=== PATIENT | female | born 1960 | race Hispanic/Latino ===

== ENCOUNTER 2021-07-01 17:50 | Inpatient (IN) | payer SELFPAY ==
[2021-07-01] MEDS ORDERED: NA CHLORIDE 0.9% 2,000 ML ONE (20:53)
[2021-07-01] MEDS ORDERED: ACETAMINOPHEN 500 MG TAB ONE (20:53)
[2021-07-01] MEDS ORDERED: ONDANSETRON 4 MG/2 ML VIAL ONE (20:53)
[2021-07-01] MEDS ORDERED: ALBUTEROL INHALER 60 PUFF/8 GM IH ONE (20:54)
[2021-07-01 21:04] LABS: SARS-COV-2 RT PCR POSITIVE (NEGATIVE)
[2021-07-01 21:22] LABS: Absolute Lymphocytes (CBC) 0.4 K/uL (0.7-4.9); Basophils % 0.2 % (0-1.3); Hematocrit 41.4 % (36.0-45.0); Lymphocytes % 7.8 % (15.3-44.8); RBC Red Blood Cell Count 4.53 M/uL (3.86-4.86)
[2021-07-01 21:28] LABS: Protime INR 1.16
--- NOTE | 2021-07-01 22:00 | RAD REPORT ---
EXAM DESCRIPTION: RAD - Chest Single View - 07/01/2021 9:35 pm CLINICAL HISTORY: possible covid;Cough COMPARISON: None TECHNIQUE: AP portable chest image was obtained 07/01/2021 9:35 pm . FINDINGS: Patchy interstitial and alveolar opacities are present. No dense consolidation or mass. He art and vasculature are normal. No measurable pleural effusion and no pneumothorax. No acute bony abn ormality seen. No acute aortic findings suspected. IMPRESSION: Patchy lung parenchymal opacification present. Pattern is nonspecific but can be seen with mild COVID-19 pneumonia.
[2021-07-01 22:06] LABS: ALT/SGPT 27 U/L (12-78); AST/SGOT 27 U/L (15-37); Albumin 2.4 g/dL (3.4-5.0); Alkaline Phosphatase 108 U/L (45-117); Amylase 25 U/L (25-115); BUN Blood Urea Nitrogen 11 mg/dL (7-18); Bicarbonate 27 mmol/L (21-32); Bilirubin Direct 0.1 mg/dL (0-0.2); Bilirubin Total 0.4 mg/dL (0.2-1.0); Creatine Phosphokinase 19 U/L (26-192); Glucose Level 272 mg/dL (74-106); Lipase 96 U/L (73-393); Potassium 3.8 mmol/L (3.5-5.1); Protein, Total 7.5 g/dL (6.4-8.2); Sodium Level 136 mmol/L (136-145); Troponin (Emerg Dept Use Only) < 0.02 ng/mL (0.0-0.045)
[2021-07-01 22:07] LABS: CKMB Creatine Kinase MB < 1.0 ng/mL (1.0-3.6)
--- NOTE | 2021-07-01 22:42 | EDPHYS ---
Physician Documentation [facility] Name: Kay Carcamo Age: 60 yrs Sex: Female : 1960 Arrival Date: 07/01/2021 Time: 17:54 Bed 15 Private MD: ED Physician Evangelist George HPI: 07/01 19:40 This 60 yrs old Female presents to ER via Wheelchair with complaints of mh7 Breathing Difficulty, Fever, Vomiting. 19:40 The patient or guardian reports cough, that is intermittent, described as moderate, mh7 with no sputum, flu symptoms, low-grade fever, myalgias, no appetite. Onset: The symptoms/episode began/occurred 1 week(s) ago. Severity of symptoms: At their worst the symptoms were moderate, last night, in the emergency department the symptoms are unchanged. Modifying factors: The symptoms are alleviated by nothing, the symptoms are aggravated by nothing. Associated signs and symptoms: Pertinent positives: fever, nausea, vomiting, Shortness of breath, nasal congestion, Pertinent negatives: chest pain, diarrhea, ear ache, rhinorrhea, sore throat. Patient reports having symptoms for 1 week. She states that she went to a clinic and had a Covid test done 5 days ago but was unable to get the results.. Historical: - Allergies: 18:39 No Known Allergies; ss - Immunization history:: Client reports having NOT received the Covid vaccine. - Social history:: Smoking status: Patient denies any tobacco usage or history of. ROS: 19:40 Eyes: Negative for injury, pain, redness, and discharge, Neck: Negative for injury, mh7 pain, and swelling, Cardiovascular: Negative for chest pain, palpitations, and edema, Back: Negative for injury and pain, : Negative for injury, bleeding, discharge, and swelling, MS/Extremity: Negative for injury and deformity, Skin: Negative for injury, rash, and discoloration, Neuro: Negative for headache, weakness, numbness, tingling, and seizure, Psych: Negative for depression, anxiety, suicide ideation, homicidal ideation, and hallucinations, Allergy/Immunology: Negative for hives, rash, and allergies, Endocrine: Negative for neck swelling, polydipsia, polyuria, polyphagia, and marked weight changes, Hematologic/Lymphatic: Negative for swollen nodes, abnormal bleeding, and unusual bruising. Exam: 19:40 Head/Face: Normocephalic, atraumatic. Eyes: Pupils equal round and reactive to light, mh7 extra-ocular motions intact. Lids and lashes normal. Conjunctiva and sclera are non-icteric and not injected. Cornea within normal limits. Periorbital areas with no swelling, redness, or edema. ENT: Nares patent. No nasal discharge, no septal abnormalities noted. Tympanic membranes are normal and external auditory canals are clear. Oropharynx with no redness, swelling, or masses, exudates, or evidence of obstruction, uvula midline. Mucous membranes moist. Neck: Trachea midline, no thyromegaly or masses palpated, and no cervical lymphadenopathy. Supple, full range of motion without nuchal rigidity, or vertebral point tenderness. No Meningismus. Chest/axilla: Normal chest wall appearance and motion. Nontender with no deformity. No lesions are appreciated. Cardiovascular: Regular rate and rhythm with a normal S1 and S2. No gallops, murmurs, or rubs. Normal PMI, no JVD. No pulse deficits. 19:40 Abdomen/GI: Soft, non-tender, with normal bowel sounds. No distension or tympany. No guarding or rebound. No evidence of tenderness throughout. Back: No spinal tenderness. No costovertebral tenderness. Full range of motion. Skin: Warm, dry with normal turgor. Normal color with no rashes, no lesions, and no evidence of cellulitis. MS/ Extremity: Pulses equal, no cyanosis. Neurovascular intact. Full, normal range of motion. Neuro: Awake and alert, GCS 15, oriented to person, place, time, and situation. Cranial nerves II-XII grossly intact. Motor strength 5/5 in all extremities. Sensory grossly intact. Cerebellar exam normal. Normal gait. Psych: Awake, alert, with orientation to person, place and time. Behavior, mood, and affect are within normal limits. 19:40 Constitutional: The patient appears in no acute distress, alert, awake, uncomfortable. 19:40 Respiratory: mild respiratory distress is noted, Respirations: normal, Breath sounds: rhonchi, that are mild, are scattered, Respiratory rate: 20 Vital Signs: 18:37 BP 127 / 64; Pulse 99; Resp 22; Temp 101.3(O); Pulse Ox 89% on R/A; ss 19:40 BP 148 / 74; Pulse 94; Resp 20; Temp 100.4(O); Pulse Ox 92% on R/A; lp1 19:56 Pulse Ox 89% on R/A; lp1 19:56 Pulse Ox 97% on 1 lpm NC; lp1 20:15 BP 156 / 83; Pulse 97; Resp 22; Pulse Ox 95% on 2 lpm NC; lp1 20:48 Weight 59.42 kg (R); lp1 21:30 BP 150 / 75; Pulse 89; Resp 24; Pulse Ox 98% on 2 lpm NC; lp1 23:00 BP 122 / 62; Pulse 88; Resp 22; Pulse Ox 96% on 2 lpm NC; lp1 23:29 Temp 99(O); lp1 MDM: 22:38 Differential Diagnosis: Bronchitis Influenza Upper Respiratory Infection Allergic mh7 Rhinitis Viral Syndrome Pneumonia. Data reviewed: vital signs, nurses notes, lab test result(s), cardiac enzymes, CBC, electrolytes, EKG, radiologic studies, plain films. Data interpreted: Pulse oximetry: on 2L(s) per nasal canula, is 97 %. Interpretation: acceptable. Counseling: I had a detailed discussion with the patient and/or guardian regarding: the historical points, exam findings, and any diagnostic results supporting the discharge/admit diagnosis, the presence of at least one elevated blood pressure reading (>120/80) during this emergency department visit, lab results, radiology results, the need for further work-up and treatment in the hospital. Response to treatment: the patient's symptoms have mildly improved after treatment. 22:41 Patient medically screened. [facility] 07/01 19:53 Order name: Amylase, Serum [facility] 07/01 19:53 Order name: Basic Metabolic Panel [facility] 07/01 19:53 Order name: Blood Culture Adult (2) [facility] 07/01 19:53 Order name: C-Reactive Protein [facility] 07/01 19:53 Order name: CBC with Diff; Complete Time: 21:32 [facility] 07/01 19:53 Order name: CPK; Complete Time: 22:09 [facility] 07/01 19:53 Order name: Ckmb; Complete Time: 22:09 [facility] 07/01 19:53 Order name: LFT's; Complete Time: 22:09 [facility] 07/01 19:53 Order name: Lactate; Complete Time: 22:09 7 07/01 19:53 Order name: Lipase; Complete Time: 22:09 7 07/01 19:53 Order name: Procalcitonin; Complete Time: 22:18 7 07/01 19:53 Order name: Protime (+inr); Complete Time: 21:32 7 07/01 19:53 Order name: Ptt, Activated; Complete Time: 21:32 7 07/01 19:53 Order name: Troponin (emerg Dept Use Only); Complete Time: 22:09 7 07/01 19:53 Order name: Urine Microscopic Only 7 07/01 19:53 Order name: Amylase; Complete Time: 22:09 EDMS 07/01 19:53 Order name: Basic Metabolic Panel; Complete Time: 22:09 MS 07/01 19:53 Order name: Blood Culture EDMS 07/01 19:53 Order name: C-Reactive Protein; Complete Time: 22:09 MS 07/01 20:28 Order name: Glucose, Ancillary Testing; Complete Time: 21:19 MS 07/01 21:04 Order name: COVID-19/FLU A+B; Complete Time: 21:19 EDMS 07/01 21:10 Order name: Glucose, Ancillary Testing; Complete Time: 21:19 EDMS 07/02 04:12 Order name: CBC with Automated Diff EDMS 07/02 04:24 Order name: Comprehensive Metabolic Panel EDMS 07/02 04:24 Order name: Phosphorus EDMS 07/02 04:24 Order name: C-Reactive Protein EDMS 07/02 04:24 Order name: Magnesium EDMS 07/02 04:24 Order name: Ferritin EDMS 07/01 18:40 Order name: XRAY Chest (1 view); Complete Time: 22:09 ss 07/01 19:53 Order name: Accucheck; Complete Time: 21:20 7 07/01 19:53 Order name: Cardiac monitoring; Complete Time: 20:13 7 07/01 19:53 Order name: EKG - Nurse/Tech; Complete Time: 20:13 7 07/01 19:53 Order name: IV Saline Lock - Large Bore; Complete Time: 21:20 7 07/01 19:53 Order name: Labs collected and sent; Complete Time: 21:21 [facility] 07/01 19:53 Order name: O2 Per Protocol; Complete Time: 20:13 7 07/01 19:53 Order name: O2 Sat Monitoring; Complete Time: 20:13 7 07/01 22:29 Order name: CONS Physician Consult EDMS 07/02 04:40 Order name: Hemoglobin A1c EDMS 07/02 05:07 Order name: Procalcitonin EDMS 07/02 07:45 Order name: Glucose, Ancillary Testing EDMS 07/02 11:56 Order name: Glucose, Ancillary Testing EDMS 07/02 16:48 Order name: Glucose, Ancillary Testing EDMS 07/02 20:01 Order name: Glucose, Ancillary Testing EDMS 07/03 03:14 Order name: CBC with Automated Diff EDMS 07/03 03:44 Order name: Basic Metabolic Panel EDMS 07/03 03:44 Order name: C-Reactive Protein EDMS 07/03 07:35 Order name: Urine Culture EDMS 07/03 09:07 Order name: Glucose, Ancillary Testing EDMS 07/03 11:35 Order name: Glucose, Ancillary Testing EDMS Administered Medications: 21:20 Drug: NS 0.9% (30 ml/kg) 30 ml/kg Route: IV; Rate: bolus; Site: right antecubital; lp1 23:31 Follow up: IV Status: Completed infusion lp1 23:32 Follow up: IV Intake: 1783ml lp1 21:20 Drug: Zofran (Ondansetron) 4 mg Route: IVP; Site: right antecubital; lp1 23:30 Follow up: Response: No adverse reaction lp1 21:20 Drug: Albuterol HFA Inhaler 2 puffs Route: Inhalation; lp1 22:00 Drug: Acetaminophen 1000 mg Route: PO; lp1 23:30 Follow up: Response: No adverse reaction; Temperature is decreased lp1 23:00 Drug: SOLU-Medrol (methylPrednisoLONE) 80 mg Route: IVP; Site: right antecubital; lp1 23:31 Follow up: Response: No adverse reaction lp1 Disposition Summary: 07/01/21 22:41 Hospitalization Ordered Hospitalization Status: Inpatient Admission [facility] Provider: Eugene Sauer Jordy Condition: Stable [facility] Problem: new [facility] Symptoms: have improved [facility] Bed/Room Type: Standard [facility] Location: Telemetry/MedSurg (Inpatient)(07/03/21 12:42) dw Room Assignment: 425(07/03/21 12:42) dw Diagnosis - COVID Pneumonia, Hypoxia mh7 Forms: - Medication Reconciliation Form mh7 - SBAR form mh7 Signatures: Dispatcher [employer] EDMS Gali Hartman RN RN dw Kathya Ashton RN RN ss Marisol Rodriges RN RN lp1 Juan Vann RN RN jb4 Evangelist George MD MD 7 Corrections: (The following items were deleted from the chart) 20:09 18:44 CORONAVIRUS+MR.LAB.BRZ ordered. EDMS EDMS 20:09 18:44 Influenza Screen (A \T\ B)+BA.LAB.BRZ ordered. EDMS EDMS 20:11 20:07 This 60 yrs old Female presents to ER via Wheelchair with complaints of mh7 Breathing Difficulty, Fever, Vomiting. [facility] 22:56 22:41 Telemetry/MedSurg (Inpatient) [facility] jb4 22:56 22:41 7 jb4 07/03 12:42 08 22:56 [facility] ER HOLD jb4 dw 07/03 12:42 08 22:56 ERHOLD- jb4 dw
--- NOTE | 2021-07-01 22:42 | ER ---
Nurse's Notes [facility] Name: Kay Carcamo Age: 60 yrs Sex: Female : 1960 Arrival Date: 07/01/2021 Time: 17:54 Bed 15 Private MD: Diagnosis: COVID Pneumonia, Hypoxia Presentation: 07/01 18:37 Chief complaint: Patient states: cough, vomiting, headache, fever and shortness of ss breath that began a week ago. Pt was tested for COVID on Saturday and received a VM regarding her results, but was unsure if it was positive or negative. Coronavirus screen: Client denies travel out of the [place] in the last 14 days. Ebola Screen: Patient denies exposure to infectious person. Patient denies travel to an Ebola-affected area in the 21 days before illness onset. Initial Sepsis Screen: Does the patient meet any 2 criteria? No. Patient's initial sepsis screen is negative. Does the patient have a suspected source of infection? No. Patient's initial sepsis screen is negative. Risk Assessment: Do you want to hurt yourself or someone else? Patient reports no desire to harm self or others. Onset of symptoms was June 24, 2021. 18:37 Method Of Arrival: Wheelchair ss 18:37 Acuity: DANYEL 2 ss Historical: - Allergies: 18:39 No Known Allergies; ss - Immunization history:: Client reports having NOT received the Covid vaccine. - Social history:: Smoking status: Patient denies any tobacco usage or history of. Screenin:00 Abuse screen: Denies threats or abuse. Denies injuries from another. Nutritional lp1 screening: No deficits noted. Tuberculosis screening: No symptoms or risk factors identified. Fall Risk None identified. Assessment: 19:56 General: Appears uncomfortable, ill, Behavior is appropriate for age. Pain: Complains lp1 of pain in back Pain currently is 6 out of 10 on a pain scale. Neuro: Level of Consciousness is awake, alert, obeys commands, Oriented to person, place, time, situation, Reports weakness generalized. Cardiovascular: Patient's skin is warm and dry. Respiratory: Reports shortness of breath cough that is productive, Airway is patent Respiratory effort is even, shallow, Breath sounds are diminished in left posterior lower lobe and right posterior lower lobe the patient has mild shortness of breath. GI: Abdomen is non-distended, Reports nausea. : No signs and/or symptoms were reported regarding the genitourinary system. EENT: No signs and/or symptoms were reported regarding the EENT system. Derm: Skin is pink, warm \T\ dry. Musculoskeletal: No deficits noted. 21:15 Reassessment: Patient appears in no apparent distress at this time. No changes from lp1 previously documented assessment. Patient aware of pending admission. Vital Signs: 18:37 BP 127 / 64; Pulse 99; Resp 22; Temp 101.3(O); Pulse Ox 89% on R/A; ss 19:40 BP 148 / 74; Pulse 94; Resp 20; Temp 100.4(O); Pulse Ox 92% on R/A; lp1 19:56 Pulse Ox 89% on R/A; lp1 19:56 Pulse Ox 97% on 1 lpm NC; lp1 20:15 BP 156 / 83; Pulse 97; Resp 22; Pulse Ox 95% on 2 lpm NC; lp1 20:48 Weight 59.42 kg (R); lp1 21:30 BP 150 / 75; Pulse 89; Resp 24; Pulse Ox 98% on 2 lpm NC; lp1 23:00 BP 122 / 62; Pulse 88; Resp 22; Pulse Ox 96% on 2 lpm NC; lp1 23:29 Temp 99(O); lp1 ED Course: 17:54 Patient arrived in ED. mr 18:39 Triage completed. ss 18:39 Arm band placed on right wrist. 19:17 Evangelist George MD is Attending Physician. [facility] 19:19 Marisol Rodriges, CLIF is Primary Nurse. lp1 20:30 Patient has correct armband on for positive identification. Placed in gown. Bed in low lp1 position. bus monitor on. Pulse ox on. NIBP on. 21:34 XRAY Chest (1 view) In Process Unspecified. EDMS 22:40 Eugene Sauer DO is Hospitalizing Provider. [facility] 23:00 Report given to CLIF Dooley. lp1 23:00 No provider procedures requiring assistance completed. Patient admitted, IV remains in lp1 place. 07/02 13:29 Primary Nurse role handed off by Marisol oRdriges, CLIF eb Administered Medications: 07/01 21:20 Drug: NS 0.9% (30 ml/kg) 30 ml/kg Route: IV; Rate: bolus; Site: right antecubital; lp1 23:31 Follow up: IV Status: Completed infusion lp1 23:32 Follow up: IV Intake: 1783ml lp1 21:20 Drug: Zofran (Ondansetron) 4 mg Route: IVP; Site: right antecubital; lp1 23:30 Follow up: Response: No adverse reaction lp1 21:20 Drug: Albuterol HFA Inhaler 2 puffs Route: Inhalation; lp1 22:00 Drug: Acetaminophen 1000 mg Route: PO; lp1 23:30 Follow up: Response: No adverse reaction; Temperature is decreased lp1 23:00 Drug: SOLU-Medrol (methylPrednisoLONE) 80 mg Route: IVP; Site: right antecubital; lp1 23:31 Follow up: Response: No adverse reaction lp1 Intake: 23:32 IV: 1783ml; Total: 1783ml. [facility] Outcome: 22:41 Decision to Hospitalize by Provider. [facility] 23:29 Admitted to ER Hold. Please see [facility] for further documentation. 1 23:29 Condition: stable 23:29 Instructed on the need for admit. 07/03 13:23 Patient left the ED. ld1 Signatures: Dispatcher [employer] Mary Kay Grider Shelby, CLIF MENEZES Marisol Rodriges RN RN 1 Reha Fuentes Maurice, MD MD [facility] Brittany Infante RN RN ld1
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
[2021-07-01] MEDS ORDERED: METHYLPREDNISOLONE 40 MG INJ ONE (23:06)
[2021-07-02] MEDS ORDERED: MORPHINE 2 MG/ML SYR IV PRN (00:04)
[2021-07-02] MEDS ORDERED: BENZONATATE 100 MG CAP PO PRN (00:04)
[2021-07-02] MEDS ORDERED: ONDANSETRON 4 MG/2 ML VIAL IV PRN (00:04)
[2021-07-02] MEDS: MELATONIN 5 MG TABLET PO PRN ×2 (00:28→22:09)
[2021-07-02] MEDS ORDERED: BENZONATATE 100 MG CAP PO ONE (00:45)
[2021-07-02] MEDS ORDERED: MELATONIN 5 MG TABLET PO ONE ×2 (00:46→22:32)
[2021-07-02 00:54] VITALS: BMI 23.9
[2021-07-02 03:23] LABS: Urine Bacteria 20-50 /HPF (<20); Urine RBC <5 /HPF (NONE SEEN)
[2021-07-02 03:38] LABS: Absolute Lymphocytes (CBC) 0.3 K/uL (0.7-4.9); Basophils % 0.4 % (0-1.3); Hematocrit 36.7 % (36.0-45.0); Lymphocytes % 7.8 % (15.3-44.8); MPV 7.9 fL (7.6-11.3)
[2021-07-02 04:23] LABS: ALT/SGPT 28 U/L (12-78); AST/SGOT 28 U/L (15-37); Albumin 2.2 g/dL (3.4-5.0); Alkaline Phosphatase 98 U/L (45-117); BUN Blood Urea Nitrogen 10 mg/dL (7-18); Bicarbonate 25 mmol/L (21-32); Bilirubin Total 0.3 mg/dL (0.2-1.0); Ferritin 648.3 ng/mL (8-388); Glucose Level 305 mg/dL (74-106); Magnesium 2.1 mg/dL (1.8-2.4); Phosphorus 2.8 mg/dL (2.5-4.9); Potassium 3.9 mmol/L (3.5-5.1); Protein, Total 6.7 g/dL (6.4-8.2); Sodium Level 138 mmol/L (136-145)
[2021-07-02] MEDS: INSULIN -REGULAR HUMAN 50 UNIT/0.5 ML ML SQ SCH ×5 (07:30→20:49)
[2021-07-02] MEDS: ACETAMINOPHEN 500 MG TAB PO PRN ×2 (07:50→22:09)
[2021-07-02] MEDS ORDERED: ACETAMINOPHEN 500 MG TAB ONE ×2 (08:11→22:32)
[2021-07-02] MEDS ORDERED: INSULIN -REGULAR HUMAN 50 UNIT/0.5 ML ML ONE ×4 (08:12→20:35)
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
[2021-07-02] MEDS: FAMOTIDINE 20 MG TAB PO SCH ×2 (09:00→20:50)
[2021-07-02] MEDS: METHYLPREDNISOLONE 125 MG INJ IV SCH ×2 (09:00→20:50)
[2021-07-02] MEDS: ASCORBIC ACID 500 MG TABLET PO SCH ×4 (09:00→20:50)
[2021-07-02] MEDS: THIAMINE HCL 100 MG TABLET PO SCH (09:00)
[2021-07-02] MEDS: IVERMECTIN 3 MG TABLET PO SCH (09:00)
[2021-07-02] MEDS: ZINC SULFATE 220 MG CAP PO SCH (09:00)
[2021-07-02] MEDS: VITAMIN D 1000 UNIT TAB PO SCH (09:00)
[2021-07-02] MEDS ORDERED: POTASSIUM CL SA 10 MEQ TAB PO ONE ×2 (09:00→09:56)
[2021-07-02] MEDS: ASPIRIN EC 81 MG TAB PO SCH (09:00)
[2021-07-02] MEDS ORDERED: ZINC SULFATE 220 MG CAP ONE (09:55)
[2021-07-02] MEDS ORDERED: ASCORBIC ACID 500 MG TABLET ONE ×4 (09:55→20:49)
[2021-07-02] MEDS ORDERED: THIAMINE HCL 100 MG TABLET ONE (09:55)
[2021-07-02] MEDS ORDERED: VITAMIN D 1000 UNIT TAB ONE (09:55)
[2021-07-02] MEDS ORDERED: ASPIRIN EC 81 MG TAB PO ONE (09:55)
[2021-07-02] MEDS ORDERED: METHYLPREDNISOLONE 125 MG INJ ONE (09:55)
[2021-07-02] MEDS ORDERED: FAMOTIDINE 20 MG TAB ONE ×2 (09:56→20:49)
--- NOTE | 2021-07-02 15:13 | P.PN ---
Subjective Date of Service: 07/02/21 Chief Complaint: covid pneumonia Patient tolerating 2 L oxygen by nasal canula. Blood sugar ranging between 200-300. Patient is refusing insulin. Physical Examination - Vital Signs Temperature: 97.6 F Blood Pressure: 140/71 Pulse: 62 Respirations: 16 Pulse Ox (%): 92 - Physical Exam General: Alert, In no apparent distress Neck: JVD not distended Respiratory: Other (Nonlabored breathing) Cardiovascular: No edema, Regular rate/rhythm, Normal S1 S2 Gastrointestinal: Soft and benign, Non-distended Musculoskeletal: No swelling Integumentary: No rashes Neurological: Normal strength at 5/5 x4 extr - Studies Laboratory Data (last 24 hrs) 07/01/21 21:10: PT 13.4 H, INR 1.16, APTT 26.3 07/01/21 21:10: WBC 5.30, Hgb 14.2, Hct 41.4, Plt Count 333 07/01/21 21:10: Sodium 136, Potassium 3.8, BUN 11, Creatinine 0.56, Glucose 272 H, Total Bilirubin 0.4, AST 27, ALT 27, Alkaline Phosphatase 108, Amylase 25, Lipase 96 Assessment And Plan - Current Problems (Diagnosis) (1) Acute respiratory failure with hypoxia Current Visit: Yes Status: Acute (2) DM type 2 (diabetes mellitus, type 2) Current Visit: Yes Status: Acute (3) Pneumonia due to COVID-19 virus Current Visit: Yes Status: Acute - Plan Patient tolerating oxygen by nasal cannula. Continue IV steroid. Vitamin supplementation. Titrate oxygen. Insulin sliding scale for glucose management. Patient may need outpatient insulin therapy given hemoglobin A1c of 11 but she is in denial of her diabetes diagnosis and refuses insulin therapy. C. reactive protein is elevated. Monitor inflammatory markers.
[2021-07-02] MEDS ORDERED: RIVAROXABAN 10 MG TABLET PO SCH (17:00)
[2021-07-02] MEDS ORDERED: RIVAROXABAN 20 MG TABLET PO ONE (17:02)
[2021-07-02] MEDS ORDERED: METHYLPREDNISOLONE 40 MG INJ ONE (20:49)
[2021-07-03 03:12] LABS: Absolute Lymphocytes (CBC) 0.6 K/uL (0.7-4.9); Basophils % 0.1 % (0-1.3); Hematocrit 39.4 % (36.0-45.0); Lymphocytes % 11.4 % (15.3-44.8); MPV 8.1 fL (7.6-11.3); RBC Red Blood Cell Count 4.29 M/uL (3.86-4.86)
[2021-07-03 03:43] LABS: BUN Blood Urea Nitrogen 17 mg/dL (7-18); Bicarbonate 30 mmol/L (21-32); Glucose Level 196 mg/dL (74-106); Potassium 4.1 mmol/L (3.5-5.1); Sodium Level 139 mmol/L (136-145)
[2021-07-03] MEDS: INSULIN -REGULAR HUMAN 50 UNIT/0.5 ML ML SQ SCH ×4 (07:30→21:49)
[2021-07-03] MEDS: ASCORBIC ACID 500 MG TABLET PO SCH ×4 (09:00→21:50)
[2021-07-03] MEDS: METHYLPREDNISOLONE 125 MG INJ IV SCH ×2 (09:00→21:50)
[2021-07-03] MEDS: ASPIRIN EC 81 MG TAB PO SCH (09:00)
[2021-07-03] MEDS: THIAMINE HCL 100 MG TABLET PO SCH (09:00)
[2021-07-03] MEDS: FAMOTIDINE 20 MG TAB PO SCH ×2 (09:00→21:49)
[2021-07-03] MEDS: ZINC SULFATE 220 MG CAP PO SCH (09:00)
[2021-07-03] MEDS: VITAMIN D 1000 UNIT TAB PO SCH (09:00)
[2021-07-03] MEDS: ACETAMINOPHEN 500 MG TAB PO PRN (09:16)
[2021-07-03] MEDS ORDERED: INSULIN -REGULAR HUMAN 50 UNIT/0.5 ML ML ONE ×3 (09:29→13:10)
[2021-07-03] MEDS ORDERED: THIAMINE HCL 100 MG TABLET ONE (09:30)
[2021-07-03] MEDS ORDERED: METHYLPREDNISOLONE 125 MG INJ ONE (09:30)
[2021-07-03] MEDS ORDERED: ASPIRIN EC 81 MG TAB PO ONE (09:30)
[2021-07-03] MEDS ORDERED: ASCORBIC ACID 500 MG TABLET ONE ×2 (09:30→13:10)
[2021-07-03] MEDS ORDERED: ZINC SULFATE 220 MG CAP ONE (09:30)
[2021-07-03] MEDS ORDERED: FAMOTIDINE 20 MG TAB ONE (09:31)
[2021-07-03] MEDS ORDERED: VITAMIN D 1000 UNIT TAB ONE (09:31)
[2021-07-03] MEDS ORDERED: ACETAMINOPHEN 500 MG TAB ONE (09:39)
[2021-07-03] MEDS: RIVAROXABAN 20 MG TABLET PO SCH (16:53)
--- NOTE | 2021-07-03 18:04 | P.PN ---
Subjective Date of Service: 07/03/21 Chief Complaint: covid pneumonia Patient tolerating 3 L oxygen by nasal canula at rest and with ambulation. Physical Examination - Vital Signs Temperature: 99.0 F Blood Pressure: 135/56 Pulse: 59 Respirations: 16 Pulse Ox (%): 95 - Physical Exam General: Alert, In no apparent distress Neck: JVD not distended Respiratory: Other (No labored breathing.) Cardiovascular: Regular rate/rhythm, Normal S1 S2 Gastrointestinal: Soft and benign, Non-distended Musculoskeletal: No swelling Integumentary: No rashes Neurological: Normal strength at 5/5 x4 extr Assessment And Plan - Current Problems (Diagnosis) (1) Acute respiratory failure with hypoxia Current Visit: Yes Status: Acute (2) DM type 2 (diabetes mellitus, type 2) Current Visit: Yes Status: Acute (3) Pneumonia due to COVID-19 virus Current Visit: Yes Status: Acute - Plan Patient stable on oxygen by nasal cannula. Continue IV steroid. Vitamin supplementation. Titrate oxygen. Insulin sliding scale for glucose management. Patient may need outpatient insulin therapy given hemoglobin A1c of 11 but she is in denial of her diabetes diagnosis and refuses insulin therapy. C. reactive protein is elevated. Monitor inflammatory markers. Arranged for home oxygen for possible discharge tomorrow.
[2021-07-04 06:03] LABS: Absolute Lymphocytes (CBC) 0.4 K/uL (0.7-4.9); Basophils % 0.4 % (0-1.3); Lymphocytes % 5.8 % (15.3-44.8); MPV 8.2 fL (7.6-11.3); RBC Red Blood Cell Count 4.24 M/uL (3.86-4.86)
[2021-07-04 06:21] LABS: BUN Blood Urea Nitrogen 17 mg/dL (7-18); Bicarbonate 29 mmol/L (21-32); Glucose Level 184 mg/dL (74-106); Potassium 4.2 mmol/L (3.5-5.1); Sodium Level 140 mmol/L (136-145)
[2021-07-04] MEDS: INSULIN -REGULAR HUMAN 50 UNIT/0.5 ML ML SQ SCH ×3 (08:39→16:30)
[2021-07-04] MEDS: ZINC SULFATE 220 MG CAP PO SCH (08:42)
[2021-07-04] MEDS: ASCORBIC ACID 500 MG TABLET PO SCH ×3 (08:42→17:00)
[2021-07-04] MEDS: VITAMIN D 1000 UNIT TAB PO SCH (08:42)
[2021-07-04] MEDS: THIAMINE HCL 100 MG TABLET PO SCH (08:42)
[2021-07-04] MEDS: FAMOTIDINE 20 MG TAB PO SCH (08:42)
[2021-07-04] MEDS: ASPIRIN EC 81 MG TAB PO SCH (08:43)
[2021-07-04] MEDS: IVERMECTIN 3 MG TABLET PO SCH (08:43)
[2021-07-04] MEDS ORDERED: METHYLPREDNISOLONE 40 MG INJ IV SCH (09:00)
--- NOTE | 2021-07-04 10:45 | P.DS ---
Admission Date: 07/01/21 Discharge Date: 07/04/21 Disposition: ROUTINE DISCHARGE Discharge Condition: GOOD Reason for Admission: covid pneumonia Consultations: Pulmonology - Dr. Patel Procedures: CXR (07/01): FINDINGS: Patchy interstitial and alveolar opacities are present. No dense consolidation or mass. Heart and vasculature are normal. No measurable pleural effusion and no pneumothorax. No acute bony abnormality seen. No acute aortic findings suspected. IMPRESSION: Patchy lung parenchymal opacification present. Pattern is nonspecific but can be seen with mild COVID-19 pneumonia. Problem list Acute hypoxemic respiratory failure secondary to COVID-19 pneumonia Diabetes mellitus type 2, uncontrolled. New diagnosis Brief History of Present Illness: 60 yo F who presents with SOB an cough beginning last week. She tested positive for COVID today. She reports nausea, vomiting, anorexia, pleuritic pain. Denies diarrhea and wheezing. Glu 272. CRP 205. Imaging consistent with COVId pneumonia. Hospital Course: Patient was diagnosed and treated for COVID-19 pneumonia. She had rather quick turn around and improvement in her symptoms. She was breathing comfortably on 3L NC, ambulating around her room, and tolerating her diet. She had elevated inflammatory markers, but was persistent in being discharged, stating she couldn't stay one more day. Since she had such improvement in her symptoms, she was discharged home with home O2 and to continue her medications at home. Follow up with Dr. Patel in 1 week Follow up with PCP in 3-5 days. She was noted to be hyperglycemic. A1c was 11.5. She was recommended to start insulin for now and to f/u with PCP for further tiration, however patient adamantly refused insulin. She was agreeable to low dose metformin. Vital Signs/Physical Exam: Temp Pulse Resp BP Pulse Ox 98.1 F 53 16 136/65 94 07/04/21 08:00 07/04/21 08:00 07/04/21 08:00 07/04/21 08:00 07/04/21 08:00 General: Alert, In no apparent distress, Oriented x3 HEENT: Sclerae nonicteric Respiratory: Diminished, Other (non-labored on 3L NC) Cardiovascular: No edema, Regular rate/rhythm Gastrointestinal: Soft and benign, Non-distended, No tenderness Musculoskeletal: No erythema, No tenderness Integumentary: No rashes, No significant lesion Neurological: Normal speech, Normal affect Laboratory Data at Discharge: WBC 7.20 K/uL (4.3-10.9) D 07/04/21 05:28 Hgb 13.3 g/dL (12.0-15.0) 07/04/21 05:28 Hct 39.0 % (36.0-45.0) 07/04/21 05:28 Plt Count 434 K/uL (152-406) H 07/04/21 05:28 PT 13.4 SECONDS (9.5-12.5) H 07/01/21 21:10 INR 1.16 07/01/21 21:10 APTT 26.3 SECONDS (24.3-36.9) 07/01/21 21:10 Sodium 140 mmol/L (136-145) 07/04/21 05:28 Potassium 4.2 mmol/L (3.5-5.1) 07/04/21 05:28 BUN 17 mg/dL (7-18) 07/04/21 05:28 Creatinine 0.34 mg/dL (0.55-1.3) L 07/04/21 05:28 Glucose 184 mg/dL (74-106) H 07/04/21 05:28 Phosphorus 2.8 mg/dL (2.5-4.9) 07/02/21 03:11 Magnesium 2.1 mg/dL (1.8-2.4) 07/02/21 03:11 Total Bilirubin 0.3 mg/dL (0.2-1.0) 07/02/21 03:11 AST 28 U/L (15-37) 07/02/21 03:11 ALT 28 U/L (12-78) 07/02/21 03:11 Alkaline Phosphatase 98 U/L (45-117) 07/02/21 03:11 Amylase 25 U/L (25-115) 07/01/21 21:10 Lipase 96 U/L (73-393) 07/01/21 21:10 Home Medications: Benzonatate [Tessalon Perle*] 100 mg PO TID PRN 7 Days #21 cap 07/04/21 Cholecalciferol (Vitamin D3) [Vitamin D 1000 Iu Tab*] 4,000 unit PO DAILY 30 Days #120 tab 07/04/21 Famotidine [Pepcid*] 40 mg PO BID 30 Days #60 tab 07/04/21 Metformin HCl [Glucophage*] 500 mg PO BIDWM 30 Days #60 tab 07/04/21 Rivaroxaban [Xarelto] 20 mg PO DAILY AT SUPPER 30 Days #30 tablet 07/04/21 predniSONE [Prednisone] 20 mg PO SEECOM 14 Days #21 tablet 07/04/21 New Medications: Metformin HCl [Glucophage*] 500 mg PO BIDWM 30 Days #60 tab Famotidine [Pepcid*] 40 mg PO BID 30 Days #60 tab predniSONE [Prednisone] 20 mg PO SEECOM 14 Days #21 tablet Benzonatate [Tessalon Perle*] 100 mg PO TID PRN 7 Days #21 cap PRN Reason: Cough Cholecalciferol (Vitamin D3) [Vitamin D 1000 Iu Tab*] 4,000 unit PO DAILY 30 Days #120 tab Rivaroxaban [Xarelto] 20 mg PO DAILY AT SUPPER 30 Days #30 tablet Physician Discharge Instructions: You were found to have COVID-19 pneumonia. You had improvement with steroids, vitamin supplementation, and oxygen supplementation. You are discharged home to continue with this treatment. Due to the increased risk of blood clots, was recommended that he continue to take Xarelto for 1 month. You should have received a coupon to help assist with the cost for this month. If the cost is too high, recommend taking a daily a spirin 325mg instead. You were also noted to have high blood sugar levels. Your hemoglobin A1c was 11.5, indicating you are diabetic. Recommended insulin, however you did not want to start this. You are discharged with a prescription for metformin. Please take as prescribed and follow up with your PCP in the next week. Follow up with Dr. Patel, Pulmonology, in ~1 week. Call his office to sc hedule the appointment. Diet: ADA Activity: Ad logan Followup: Joe Patel MD [ACTIVE - CAN ADMIT] - 1 Week NONE,NONE [Primary Care Provider] - Time spent managing pt's care (in minutes): 35
[2021-07-04] MEDS: ACETAMINOPHEN 500 MG TAB PO PRN (11:13)
[2021-07-04 16:05] VITALS: O2SAT 95
[2021-07-04 16:44] VITALS: BP 132/65; TEMP 98.8
[2021-07-04] MEDS: RIVAROXABAN 20 MG TABLET PO SCH (17:00)
== END 2021-07-04 18:00 | disposition home or self-care (01) | DRG 177 ==
LOC: ER 17:50 → ERHOLD 22:32 → 4TH 07-03 14:32
PROVIDERS: ADMIT Internal Medicine; ATTEND Internal Medicine
DX: U07.1 COVID-19 (principal); J12.82 Pneumonia due to coronavirus disease 2019; J96.01 Acute respiratory failure with hypoxia; E11.65 Type 2 diabetes mellitus with hyperglycemia
CPT/HCPCS: 0240U; 36415; 71045; 80048; 80053; 80076; 81015; 82150; 82550; 82553; 82728; 82947; 83036; 83605; 83690; 83735; 84100; 84145; 84484; 85025; 85610; 85730; 86140; 87040; 87086; 87088; 93005; 94760; 96365; 96366; 96375; 97116; 97161; 99285; J2405; J2920; J2930; J7030